=== PATIENT | female | born 1965 | race African-American/Black ===

== ENCOUNTER 2018-11-12 13:36 | Emergency (ER) | payer OTHER ==
[~2018-11-12] VITALS: Ht 160 cm; Wt 115.7 kg
[~2018-11-12 13:36] MED LIST: IBUPROFEN 600600 M1 PO; NORCO 10-325 T1 EACH PO; ULTRAM 50MG TAB50 MG PO
[2018-11-12] MEDS ORDERED: VITAMIN E400 UNIT PO (14:05)
[2018-11-12 14:23] LABS: HEMATOCRIT 40.5 % (37.0-47.0); HEMOGLOBIN 13.1 gm/dL (12.0-15.0); MCH 25.7 pg (26.0-34.0); MCHC 32.2 g/dL (28.0-37.0); MCV 79.8 fL (80.0-100.0); PLATELET COUNT 313 thou/uL (150-400); RBC 5.08 mil/uL (4.20-5.00); WBC 4.6 thou/uL (4.0-11.0)
[2018-11-12 14:30] LABS: ANION GAP 5 mmol/L (7-16); BUN 10 mg/dL (7-18); CALCIUM 9.1 mg/dL (8.5-10.1); CHLORIDE 106 mmol/L (98-107); CO2 31 mmol/L (21-32); GLUCOSE 135 mg/dL (74-106); POTASSIUM 3.3 mmol/L (3.5-5.1); SODIUM 142 mmol/L (136-145)
[2018-11-12 14:40] LABS: ALBUMIN 3.5 g/dL (3.4-5.0); MAGNESIUM 2.1 mg/dL (1.8-2.4); SGOT 14 U/L (15-37); SGPT 19 U/L (30-65); TOTAL BILIRUBIN 0.3 mg/dL (<0.1-1.0); TOTAL PROTEIN 7.9 g/dL (6.4-8.2); TROPONIN-I <0.06 ng/mL (<0.06)
[2018-11-12 14:48] LABS: ABSOLUTE NEUTROPHILS 2.8 thou/uL (1.4-8.2)
[2018-11-12 17:44] VITALS: BP 131/82
--- NOTE | 2018-11-13 18:21 | EKG ---
[place] [address] [employer] [place] [address] ELECTROCARDIOGRAM REPORT Name: ROBBIE CABAN Room #: DEP NICOLAS Galarza#: [id number] ������������������ Admission: 11/12/18 ������������������ Attend Phys: Discharge: 11/12/18 ������������������ Date of : 63 Report #: [id number] ����������������������������������������������������������������� [id number] THIS REPORT FOR: //name// [facility] ED Test Date: 2018-11-12 Test Time: 13:40:07 Pat Name: ROBBIE CABAN Department: Room: Gender: F Configuration Engineer: [facility] : 1965 Requested By: Darryl Bae Order Number: [id number] MD: Brenden Rosado Measurements Intervals [place] Rate: 72 P: 49 NM: 128 QRS: 7 QRSD: 88 T: 2 QT: 393 QTc: 431 Interpretive Statements Sinus rhythm Voltage criteria for left ventricular hypertrophy No previous ECG available for comparison Electronically Signed On 11-13-2018 18:21:14 CDT by Brenden Rosado [email or web address] ��������������������������������������������� <ELECTRONICALLY SIGNED> ���������������������������������������� By: Brenden Rosado MD, [facility] ��������������������������������������������� 11/13/18 1821 1340 1340 Brenden Rosado MD, FACC /EPI
== END 2018-11-12 17:45 | disposition home or self-care (01) ==
LOC: ER 13:36
PROVIDERS: Emergency Medicine
DX: R07.89 Other chest pain (principal); E66.9 Obesity, unspecified; Z68.42 Body mass index [BMI] 45.0-49.9, adult